=== PATIENT | male | born 1955 | race Caucasian/White ===

== ENCOUNTER 2017-12-30 11:31 | Outpatient (RCR) | payer OTHER, SELFPAY | END 2017-12-30 23:59 | disposition home or self-care (01) | LOC: CR 11:31 | PROVIDERS: PCP General Practice; Visit Provider Family Medicine | DX: Z95.3 Presence of xenogenic heart valve (principal); Z95.1 Presence of aortocoronary bypass graft; Z51.89 Encounter for other specified aftercare | CPT/HCPCS: S9472 ==

== ENCOUNTER 2018-01-01 02:37 | Outpatient (RCR) | payer OTHER, SELFPAY | END 2018-01-29 23:59 | disposition home or self-care (01) | LOC: CR 02:37 | PROVIDERS: PCP General Practice; Visit Provider General Practice | DX: Z51.89 Encounter for other specified aftercare (principal) ==

== ENCOUNTER 2018-01-10 00:54 | Outpatient (CLI) | payer OTHER, SELFPAY ==
[2018-01-10 13:20] LABS: CREATININE 1.39 mg/dL (0.70-1.30); Estimated GFR 51.78 (mL/min/1.73m2)
== END 2018-01-10 01:14 ==
PROVIDERS: PCP General Practice; Visit Provider Physician Assistant Medical
DX: Z86.79 Personal history of other diseases of the circulatory system (principal); Z13.29 Encounter for screening for other suspected endocrine disorder
CPT/HCPCS: 36415; 82565

== ENCOUNTER 2018-01-18 01:31 | Outpatient (CLI) | payer OTHER, SELFPAY ==
--- NOTE | 2018-01-18 08:54 | DI.CT_ITS ---
SYMPTOMS/DIAGNOSIS: H/O AORTIC VALVULAR STENOSIS, Z86.[address]: CT examination of the chest was performed with a bolus infusion of 100 cc's of Omnipaque 350. Images obtained through the upper abdomen show unremarkable appearance of visualized portions of the liver, spleen, pancreas and adrenals. There is an apparent left renal exophytic cyst. The gallbladder has been surgically removed. There is an aortic valve prosthesis. No evidence of aortic dissection. Ascending aorta is mildly ectatic at 42 mm. No gross pulmonary arterial thrombus identified although the pulmonary arterial circulation is not ideally opacified. No mediastinal or hilar adenopathy. No pericardial effusion. No pleural effusion or pleural based mass seen. The tracheobronchial tree appears intact. Previously noted right lower lobe consolidation noted on CT of 11/01/17 of the abdomen and pelvis has largely resolved with mild residual apparent scarring. There are changes of pulmonary emphysema and apparent pulmonary and pleural scarring in the lung apices. There is a right lower lobe intrapulmonary noncalcified nodule measuring about 6 mm in diameter. There is an intrapulmonary nodule at the left lung base and the left lower lobe measuring about 9 mm in greatest diameter and an additional poorly seen probably about 7 mm in diameter nodule in the left lung base in the lingula. Additional left basilar nodules were visible on previous CT and are not seen on today's examination. 9 mm nodule may actually be slightly smaller on today's examination. CONCLUSION: 1. Interval resolution of previously described right lower lobe consolidation. 2. Indeterminate multiple bilateral intrapulmonary nodules at the lung bases. Follow up chest CT recommended in 6 months to assess for stability. 3. Mildly ectatic ascending aorta at 42 mm in a patient with aortic valve prosthesis.
[2018-01-18] MEDS: Omnipaque 350 MG/ML 100 ML BTL IJ (09:38)
== END 2018-01-18 01:51 ==
PROVIDERS: PCP General Practice; Visit Provider Physician Assistant Medical
DX: R91.8 Other nonspecific abnormal finding of lung field (principal); I77.810 Thoracic aortic ectasia; J98.4 Other disorders of lung; Z95.2 Presence of prosthetic heart valve
CPT/HCPCS: 71260; J3490

== ENCOUNTER 2018-01-26 07:00 | Outpatient (RCR) | payer SELFPAY ==
--- NOTE | 2018-01-03 07:00 | PR3E_ITS ---
is a 63 year old male who was referred to cardiac rehabilitation Phase 2 in August 2017 s/p TAVR & CABG on 08/22/17. The patient participated and completed the Phase 2 program and has now decided to join the Phase 3 maintenance program, 2 days per week. PMH:NIDDM, Acute on chronic respiratory failure requiring supplemental oxygen, psoriasis, stable angina, BPH, HCL Cardiac Medications: Aspirin, Lopressor, Atorvastatin Risk factors:+ male, +family history, +sedentary, +stress, +remote history of smoking, +HCL, +DM II First day of exercise in Phase 3: Pt presented on 01/03/18 for his first day of exercise. Already oriented to program structure and equipment from Phase 2. Resting BP 118/67, HR 55, weight 252 lbs.Tolerated his usual regimen (treadmill , NuStep, Bike, and UBE for ten minutes each) HR w/ exercise in the 60's, KRYSTA scale ratings 12-13. Will continue to progress as tolerated.
== END 2018-01-29 23:59 | disposition home or self-care (01) ==
LOC: CR 07:00
PROVIDERS: PCP General Practice; Visit Provider Family Medicine
DX: Z51.89 Encounter for other specified aftercare (principal)

== ENCOUNTER 2018-02-28 07:00 | Outpatient (RCR) | payer SELFPAY | END 2018-03-01 23:59 | disposition home or self-care (01) | LOC: CR 07:00 | PROVIDERS: PCP General Practice; Visit Provider Family Medicine | DX: Z51.89 Encounter for other specified aftercare (principal) ==

== ENCOUNTER 2018-03-30 07:00 | Outpatient (RCR) | payer SELFPAY | END 2018-03-31 23:59 | disposition home or self-care (01) | LOC: CR 07:00 | PROVIDERS: PCP General Practice; Visit Provider Family Medicine | DX: Z51.89 Encounter for other specified aftercare (principal) ==

== ENCOUNTER 2018-04-27 15:03 | Outpatient (RCR) | payer SELFPAY | END 2018-05-01 23:59 | disposition home or self-care (01) | LOC: CR 15:03 | PROVIDERS: PCP General Practice; Visit Provider Family Medicine | DX: Z51.89 Encounter for other specified aftercare (principal) ==

== ENCOUNTER 2018-05-05 09:32 | Outpatient (REF) | payer OTHER, SELFPAY ==
[2018-05-05 13:34] LABS: HCT 45.1 % (40.0-50.0); HGB 14.8 g/dL (13.5-17.5); Mean Corp. HGB Concentration 32.8 g/dL (32.0-36.0); Mean Corpuscular Hemoglobin 29.7 pg (27.0-33.0); Mean Corpuscular Volume 90.4 fL (80-95); Mean Platelet Volume 13.1 fL (8.0-11.0); Platelet Count 156 x1000/uL (130-400); RBC 4.99 m/cumm (4.50-6.00); RBC Distribution Width 14.1 % (11.8-14.1); White Blood Cell Count 7.67 k/cumm (4.4-10.8)
[2018-05-05 13:58] LABS: Hemoglobin A1C 6.3 % (4.5-6.2)
[2018-05-05 14:00] LABS: ALT 33 U/L (12-78); AST 22 U/L (15-37); Albumin 3.6 g/dL (3.4-5.0); Alkaline Phosphatase 47 U/L (46-116); Anion Gap 8.5 mmol/L (3-11); BUN 31 mg/dL (7-18); Bilirubin, Total 0.7 mg/dL (0.2-1.0); CO2 26.5 mmol/L (21.0-32.0); CREATININE 1.56 mg/dL (0.70-1.30); Calcium 8.9 mg/dL (8.5-10.1); Chloride 108 mmol/L (98-107); Cholesterol 138 mg/dL (50-200); Estimated GFR 45.18 (mL/min/1.73m2); Glucose 129 mg/dL (70-100); HDL Cholesterol 36 mg/dL (40-60); LDL CHOLESTEROL 70 mg/dL (<100); Potassium 4.5 mmol/L (3.5-5.1); Sodium 143 mmol/L (136-145); Total Protein 7.1 g/dL (6.4-8.2); Triglyceride 144 mg/dL (30-150)
[2018-05-08 09:29] LABS: Hepatitis C Ab w Rflx HCV PCR Negative (NEGAT)
[2018-05-08 11:31] LABS: PSA, Screening 1.3 ng/ml (0-4.5)
== END 2018-05-05 09:52 ==
LOC: NCHCN 09:32
PROVIDERS: PCP General Practice; Visit Provider Family Medicine
DX: N18.9 Chronic kidney disease, unspecified (principal); E11.9 Type 2 diabetes mellitus without complications; E78.5 Hyperlipidemia, unspecified; R19.7 Diarrhea, unspecified; R80.9 Proteinuria, unspecified; Z12.5 Encounter for screening for malignant neoplasm of prostate; Z11.59 Encounter for screening for other viral diseases; Z00.00 Encounter for general adult medical examination without abnormal findings
CPT/HCPCS: 80053; 80061; 83721; 84153; 85027; 86803; 83036

== ENCOUNTER 2018-06-01 07:00 | Outpatient (RCR) | payer SELFPAY | END 2018-06-01 23:59 | disposition home or self-care (01) | LOC: CR 07:00 | PROVIDERS: PCP General Practice; Visit Provider Family Medicine | DX: Z51.89 Encounter for other specified aftercare (principal) ==

== ENCOUNTER 2018-06-27 12:55 | Outpatient (RCR) | payer SELFPAY | END 2018-06-29 23:59 | disposition home or self-care (01) | LOC: CR 12:55 | PROVIDERS: PCP General Practice; Visit Provider Family Medicine | DX: Z51.89 Encounter for other specified aftercare (principal) ==

== ENCOUNTER 2018-07-27 07:00 | Outpatient (RCR) | payer SELFPAY | END 2018-07-30 23:59 | disposition home or self-care (01) | LOC: CR 07:00 | PROVIDERS: PCP General Practice; Visit Provider Family Medicine | DX: Z51.89 Encounter for other specified aftercare (principal) ==

== ENCOUNTER 2018-08-24 07:00 | Outpatient (RCR) | payer SELFPAY | END 2018-08-29 23:59 | disposition home or self-care (01) | LOC: CR 07:00 | PROVIDERS: PCP General Practice; Visit Provider Family Medicine | DX: Z51.89 Encounter for other specified aftercare (principal) ==

== ENCOUNTER 2018-09-26 07:00 | Outpatient (RCR) | payer SELFPAY | END 2018-09-29 23:59 | disposition home or self-care (01) | LOC: CR 07:00 | PROVIDERS: PCP General Practice; Visit Provider Family Medicine | DX: Z51.89 Encounter for other specified aftercare (principal) ==

== ENCOUNTER 2018-10-26 11:20 | Outpatient (RCR) | payer SELFPAY | END 2018-10-29 23:59 | disposition home or self-care (01) | LOC: CR 11:20 | PROVIDERS: PCP General Practice; Visit Provider Family Medicine | DX: Z51.89 Encounter for other specified aftercare (principal) ==

== ENCOUNTER 2018-11-28 13:25 | Outpatient (RCR) | payer SELFPAY | END 2018-11-29 23:59 | disposition home or self-care (01) | LOC: CR 13:25 | PROVIDERS: PCP General Practice; Visit Provider Family Medicine | DX: Z51.89 Encounter for other specified aftercare (principal) ==

== ENCOUNTER 2018-12-28 07:00 | Outpatient (RCR) | payer SELFPAY | END 2018-12-30 23:59 | disposition home or self-care (01) | LOC: CR 07:00 | PROVIDERS: PCP General Practice; Visit Provider Family Medicine | DX: Z51.89 Encounter for other specified aftercare (principal) ==

== ENCOUNTER 2019-01-25 11:55 | Outpatient (RCR) | payer SELFPAY | END 2019-01-29 23:59 | disposition home or self-care (01) | LOC: CR 11:55 | PROVIDERS: PCP General Practice; Visit Provider Family Medicine | DX: Z51.89 Encounter for other specified aftercare (principal) ==

== ENCOUNTER 2019-03-01 11:59 | Outpatient (RCR) | payer SELFPAY | END 2019-03-01 23:59 | disposition home or self-care (01) | LOC: CR 11:59 | PROVIDERS: PCP General Practice; Visit Provider Family Medicine | DX: Z51.89 Encounter for other specified aftercare (principal) ==

== ENCOUNTER 2019-03-02 05:34 | Outpatient (RCR) | payer SELFPAY | END 2019-03-31 23:59 | disposition home or self-care (01) | LOC: CR 05:34 | PROVIDERS: PCP General Practice; Visit Provider Family Medicine | DX: Z51.89 Encounter for other specified aftercare (principal) ==

== ENCOUNTER 2019-04-19 07:00 | Outpatient (RCR) | payer SELFPAY | END 2019-05-01 23:59 | disposition home or self-care (01) | LOC: CR 07:00 | PROVIDERS: PCP General Practice; Visit Provider Family Medicine | DX: Z51.89 Encounter for other specified aftercare (principal) ==

== ENCOUNTER 2019-05-22 07:00 | Outpatient (RCR) | payer SELFPAY | END 2019-06-01 23:59 | disposition home or self-care (01) | LOC: CR 07:00 | PROVIDERS: PCP General Practice; Visit Provider Family Medicine | DX: Z51.89 Encounter for other specified aftercare (principal) ==

== ENCOUNTER 2019-05-24 06:02 | Day surgery (SDC) | payer OTHER, SELFPAY ==
[2019-05-24 06:17] VITALS: BP 118/71; PULSE 58; RESP 16; TEMP 36.6; O2SAT 94
[2019-05-24] MEDS: Lactated Ringers 1,000 ML 80 ML IV (06:50)
--- NOTE | 2019-05-24 07:44 | BOWEL_PTH ---
PATIENT: Edwin Byers LOC: [facility] U#:[id number] AGE/SX: 64/M ROOM: RE05/24/[address]: Kiya Springer : 1955 BED: DIS: 05/24/2019 SPEC #: [id number] RECD: 05/24/19 12:25 STATUS: JACLYN REQ #: [id number] FREEMAN: 05/24/19 07:[address]: Kiya Springer DEPT: Surgical Specimen RECD BY: Nicolasa Kapadia ENTERED: 05/24/19 12:27 SP TYPE: Bowel OTHR DR: Anjali Patel Tissues: 1 - BIOPSY BOWEL 2 - BIOPSY BOWEL Procedures: GROSS AND MICRO LEVEL 4 Comments: [id number]
--- NOTE | 2019-05-24 08:15 | W.COLOREPORT ---
Date of service: 05/24/19 Time of Service: 08:15 Colonoscopy Report Date of procedure: 05/24/19 Pre-op diagnosis general: crc screen Post-op diagnosis procedure note: other (polyp[s) Procedure: ce w/ hot polepectomy x5 Surgeon: Kiya Springer Anesthesia proc note operative: GETA Estimated blood loss (mL): 1 Pathology: other Complications: None Disposition: same day Prep: Miralax/Dulcolax Procedure Description: After informed consent was obtained the patient was taken to the procedure room and placed in a left decubitous position. Monitors were applied and a time out was done. The patients name, date of , procedure, allergies to medications and metal in their body was reviewed. The patient was then sedated. Once sedated and comfortable a rectal exam was done. External exam was normal. Internal exam revealed a normal sphincter tone and no palpable masses. The scope was then introduced and retrofelexed. no internal hemorrhoids were identified. The scope was then advanced to the cecumw/out difficulty. The TI and appendiceal orifice were identified. The prep was good. The scope was then slowly retracted over 15 minutes back into the rectum. no AVM or diverticula. Polyps were removed at x1 @ 40cm/sigmoid and x4 in rectum. All were removed w/ hot biting forcept. all Specimens were retrieved and no bleeding was noted. the scope was removed and the patient was woken up and taken back to Same day surgery in stable condition. The patient tolerated the procedure well and there were no immediate complications. Follow up: The patient should follow up in 5-10- path pd years unless they develop changes in bowel habits or other new gastrointestinal complaints.
--- NOTE | 2019-05-24 08:17 | PDOC.DSDIS_ITS ---
Discharge Plan Disposition Patient Disposition: HOME Condition: Good Discharge Details Reason For Visit: colon scope and polyp removal Attending Provider: Kiya Springer Primary Care Provider: Anjali Patel Home Meds and New Rx's Prescriptions: Continued sildenafil [Viagra] 25 mg tablet 50 mg PO .prior to sex PRNRF: 0 cholecalciferol (vitamin D3) 1,000 unit capsule 2,000 unit PO DAILY RF: 0 fluoxetine 20 mg capsule 20 mg PO DAILY RF: 0 pioglitazone [Actos] 45 mg tablet 45 mg PO DAILY RF: 0 (DME) blood-glucose meter [FreeStyle Lite Meter] 1 EACH kit 1 ea Miscellaneous DIRECTED RF: 0 glipizide [Glucotrol] 10 MG tablet 10 mg PO BID Qty: 180 RF: 3 (DME) FreeStyle Lite Strips 1 EACH strip 1 ea Miscellaneous DAILY Qty: 100 RF: 4 (DME) lancets [FreeStyle Lancets] 1 EACH misc 1 ea Miscellaneous DAILY Qty: 100 RF: 4 atorvastatin [Lipitor] 80 MG tablet 80 mg PO HS RF: 0 metoprolol tartrate 12.5 MG tablet 12.5 mg PO BID RF: 0 Discontinued polyethylene glycol 3350 17 gram/dose powder 238 g PO ONCE Qty: 238 RF: 0 bisacodyl [Dulcolax (bisacodyl)] 5 mg tablet,delayed release (DR/EC) 5 mg PO ONCE Qty: 4 RF: 0 aspirin [Ecotrin Low Strength] 81 MG tablet,delayed release (DR/EC) 81 mg PO DAILY RF: 0 Discharge Instructions Additional Instructions: Findings: polyps x5 (but small). repeat scope in 5yrs- path pd. will send a letter in 2-3 wks when to repeat scope. -no asa/nsaids's x 2 wks. than ok to resume. tylenol is ok. Follow up: see above Please call if you develop: fevers >101.5 Nausea or Vomiting Abdominal pain that is not transient DAY SURGERY UNIT POST COLONOSCOPY INSTRUCTIONS 1. Because there will be medication in your system for the next 24 hours, you may feel a little sleepy. Your coordination will be affected. Therefore: a. Do not drive or operate dangerous equipment for 24 hours. b. Do not drink alcohol beverages for 24 hours (not even beer). c. Plan to go home and rest for the day. 2. Generally there are no restrictions on your activity after a day or so has go ne by, but you may feel a bit fatigued for a few days. 3 After you arrive home you may have a light meal and return to a normal diet as you can tolerate it without feeling sick to your stomach. 4. After surgery, you may feel pain or discomfort. This should be only transient, but if it persists please contact your doctor. 5. If there are any questions regarding the findings of your procedure, please feel free to contact your doctor. 6. If you are unable to contact your doctor with a problem, contact the hospital at [phone]. 7. Continue all your regular medications unless directed otherwise. I understand the above instructions and have no questions. Signature of Patient or Responsible Adult Escort Date/Time Name of Responsible Adult Escort Signature of Nurse Date/Time Activity:: No lifting over 20 pounds or strenuous activity [id number] Diet:: Small light meals x24 hours Discharge Orders Discharge Orders: Discharge Order (Routine); Ordered 05/24/19 Ordered By: Kiya Springer DS: Diagnosis Discharge Diagnosis (1) Colorectal polyps: Status: Acute
[2019-05-24 08:41] VITALS: BP 119/76; PULSE 57; RESP 16; TEMP 36.2; O2SAT 95
== END 2019-05-24 08:55 | disposition home or self-care (01) ==
PROVIDERS: PCP Family Medicine; Visit Provider Surgery
PROC: 0DJD8ZZ Inspection of Lower Intestinal Tract, Via Natural or Artificial Opening Endoscopic (ICD-10-PCS; CPT 45378; principal; 2019-05-24 07:30)
DX: Z12.11 Encounter for screening for malignant neoplasm of colon (principal); D12.8 Benign neoplasm of rectum; K62.1 Rectal polyp; E11.9 Type 2 diabetes mellitus without complications; Z79.4 Long term (current) use of insulin; G47.33 Obstructive sleep apnea (adult) (pediatric)
CPT/HCPCS: 45384; 88305; J2250; J2704; J3010

== ENCOUNTER 2019-06-28 07:00 | Outpatient (RCR) | payer SELFPAY | END 2019-06-30 23:59 | disposition home or self-care (01) | LOC: CR 07:00 | PROVIDERS: PCP Family Medicine; Visit Provider Family Medicine | DX: Z51.89 Encounter for other specified aftercare (principal) ==

== ENCOUNTER 2019-07-10 07:00 | Outpatient (RCR) | payer SELFPAY | END 2019-07-31 23:59 | disposition home or self-care (01) | LOC: CR 07:00 | PROVIDERS: PCP Family Medicine; Visit Provider Family Medicine | DX: Z51.89 Encounter for other specified aftercare (principal) ==

== ENCOUNTER 2019-12-26 20:21 | Outpatient (REF) | payer OTHER, SELFPAY ==
[2019-12-26 21:03] LABS: Hemoglobin A1C 6.3 % (3.8-5.6)
[2019-12-26 21:22] LABS: ALT 33 U/L (16-63); AST 20 U/L (15-37); Albumin 3.5 g/dL (3.4-5.0); Alkaline Phosphatase 59 U/L (46-116); Anion Gap 8.4 mmol/L (3-11); BUN 20 mg/dL (7-18); Bilirubin, Total 0.6 mg/dL (0.2-1.0); CO2 23.6 mmol/L (21.0-32.0); CREATININE 1.33 mg/dL (0.70-1.30); Calcium 8.6 mg/dL (8.5-10.1); Calculated LDL 51 mg/dL (<100); Chloride 112 mmol/L (98-107); Cholesterol 127 mg/dL (<200); Estimated GFR 54.13 (mL/min/1.73m2); Glucose 161 mg/dL (74-106); HDL Cholesterol 30 mg/dL (40-60); Potassium 4.3 mmol/L (3.5-5.1); Sodium 144 mmol/L (136-145); Total Protein 6.8 g/dL (6.4-8.2); Triglyceride 232 mg/dL (<150)
== END 2019-12-26 20:41 ==
LOC: NCHCN 20:21
PROVIDERS: PCP Family Medicine; Visit Provider Family Medicine
DX: E11.9 Type 2 diabetes mellitus without complications (principal)
CPT/HCPCS: 80053; 80061; 83036

== ENCOUNTER 2019-12-27 13:08 | Outpatient (CLI) | payer OTHER, SELFPAY ==
--- NOTE | 2019-12-26 10:33 | DI.US_ITS ---
APPROVED REPORT EXAM: Comprehensive 2D, Doppler, and color-flow Echocardiogram Patient Location: Out-Patient [employer] Umpire: Susan Dasilva RDCS (AE) Indications: ASCVD, Bioprosthetic AVR Other Information Study Quality: Adequate Conclusion Left Ventricle : The left ventricle is normal size. The left ventricular systolic function is normal. The left ventricular ejection fraction is within the normal range. There is normal left ventricular wall thickness. There is normal LV segmental wall motion. Diastolic function is indeterminate. LVEF i s 60%. Right Ventricle : Right ventricle is not well visualized. Right ventricular systolic function could n ot be assessed. The RVSP is 27.1mmHg. Atria : The right atrium size is normal. Aortic Valve : Bioprosthetic aortic valve is present. No aortic regurgitation is present. No hemodyna mically significant valvular aortic stenosis. Great Vessels : The aortic root is normal in size. The ascending aorta is severely dilated (4.3cm). A ortic arch is normal in caliber. IVC is normal in size and collapses >50% with inspiration. There are no prior images available for comparison. Wall motion Left Ventricle The left ventricle is normal size. The left ventricular systolic function is normal. The left ventric ular ejection fraction is within the normal range. There is normal left ventricular wall thickness. T here is normal LV segmental wall motion. Diastolic function is indeterminate. There is no ventricular septal defect visualized. LVEF is 60%. Right Ventricle Right ventricle is not well visualized. Right ventricular systolic function could not be assessed. Th e RVSP is 27.1mmHg. Atria The left atrium size is normal. The right atrium size is normal. The interatrial septum is intact wit h no evidence for an atrial septal defect. Aortic Valve No hemodynamically significant valvular aortic stenosis. No aortic regurgitation is present. Bioprost hetic aortic valve is present. Mitral Valve Mild mitral annular calcification. No evidence of mitral valve stenosis. Mild mitral regurgitation. Tricuspid Valve The tricuspid valve is normal in structure. There is no tricuspid valve stenosis. Trace tricuspid reg urgitation. Pulmonic Valve Pulmonic valve is not well visualized. There is no pulmonic valvular stenosis. Trace pulmonic regurgi tation. Great Vessels The aortic root is normal in size. The ascending aorta is severely dilated (4.3cm). Aortic arch is no rmal in caliber. IVC is normal in size and collapses >50% with inspiration. Pericardium There is no pericardial effusion. 2D Dimensions IVSD d PLAX 1.13 cm M: 0.6-1.2 LV Vol A2C d MOD 122.3 mL LVPW d PLAX 1.15 cm M: 0.6 - 1.2 LV Vol A4C d MOD 166.5 mL LVID d PLAX 5.71 cm M: 4.2 - 5.8 LA vol/ BSA A2C s A-L 22.0 mL/m2 LVDs 3.70 cm M: 2.5 - 4.0 LA Area A2C s MOD 19.77 cm2 Ao Root d 3.66 cm M: 3.1 - 3.7 LV EF A4C MOD 62.2 % RA Area A4C 26.58 cm2 LV EF A2C MOD 61.0 % RA Vol/ BSA A4C s A-L 37.9 mL/m2 LV EF Biplane MOD 62.3 % Ao Asc Diam d 4.32 cm M: 2.6 - 3.4 SV 97.96 mL LV EF Teichholz 63.1 % SV Index 38.99 mL/m2 LVEF (Cornelius's) 62.31 % M: 52 - 72 LV Volume 109.90 mL M: 62 - 150 LV Volume Index 43.78 mL/m2 M: 34 - 74 LV Vol Biplane MOD 157.2 mL FS 34.60 % M-Mode TAPSE 1.83 cm (M/F) >1.7 LV Diastology MV E' medial 0.066 (>0.07 m/s) E/A Ratio 1.6 LV E/e MED 15.65 (<14) MV E Vmax 1.03 (0.4-1.3 m/s) MV E' lateral 0.113 (>0.1 m/s) MV A Vmax 0.65 (0.4-1.3 m/s) LV E/e LAT 9.10 (<14) MV E/A Ratio 1.57 MV E/E' medial 15.65 MV E/E' lateral 9.12 Aortic Valve LVOT Area 5.26 cm2 AoV Area Vmax 3.17 cm2 LVOT Vmax 1.38 m/s AoV Area/ BSA (Vmax) 1.26 cm2/m2 LVOT Mean Jovanni. 0.88 m/s TEGAN Mean Jovanni. 2.97 cm2 LVOT Peak Grad 7.7 mmHg TEGAN Mean Jovanni. Index 1.18 cm2/m2 LVOT Mean Grad 3.7 mmHg LVOT VTI 0.285 m LVOT Diam s 2.55 cm AoV Vmax 2.30 m/s Velocity Ratio 0.60 AoV Mean Jovanni. 1.56 m/s AoV Peak Grad 21.1 mmHg LVOT SV 149.97 mL AoV Mean Grad 11.7 mmHg AoV VTI 0.459 m AoV Area VTI 3.26 cm2 AoV Area/ BSA (VTI) 1.30 cm/m2 Mitral Valve MV DT 166 (160-240 msec) MR Vmax 3.89 m/s MV PHT 48 msec MR VTI 1.248 m MV Area PHT 4.58 cm2 MR Peak Grad 60.4 mmHg MV VTI 0.293 m MR Mean Grad 51.3 mmHg MV Area VTI 5.12 (4.0-6.0 cm2) MR PISA Radius 0.47 cm MR EROA 0.13 cm2 MR Aliasing Velocity 0.35 m/s MR PISA 1.41 cm2 Pulmonary Valve PV Vmax 1.06 (0.5-1.5 m/s) RVOT Peak Gr. 1.84 mmHg PV Peak Grad 4.5 mmHg RVOT Mean Gr. 0.90 mmHg PV Mean Grad 2.5 mmHg RVOT VTI 0.171 m PV VTI 0.237 m RVOT Vmax 0.68 m/s Tricuspid Valve TR Peak Grad 24.1 mmHg TR Vmax 2.46 m/s RA Pressure 3.00 mmHg RVSP (TR) 27.1 mmHg
== END 2019-12-27 13:28 ==
PROVIDERS: PCP Family Medicine; Visit Provider Internal Medicine
DX: I25.10 Atherosclerotic heart disease of native coronary artery without angina pectoris (principal); Z95.3 Presence of xenogenic heart valve; I77.810 Thoracic aortic ectasia
CPT/HCPCS: 93306

== ENCOUNTER 2020-12-23 10:00 | Outpatient (RCR) | payer SELFPAY ==
[2020-11-30 00:16] VITALS: BP 147/78; PULSE 65
[2020-12-02 09:57] VITALS: BP 135/80; PULSE 58
[2020-12-09 10:29] VITALS: BP 126/80; PULSE 61
[2020-12-16 10:21] VITALS: BP 145/73; PULSE 70
[2020-12-18 10:28] VITALS: BP 114/74; PULSE 71
[2020-12-23 10:37] VITALS: BP 131/79; PULSE 68
== END 2020-12-30 23:59 | disposition home or self-care (01) ==
LOC: CR 10:00
PROVIDERS: PCP Family Medicine; Visit Provider Family Medicine
DX: I25.10 Atherosclerotic heart disease of native coronary artery without angina pectoris (principal); Z51.89 Encounter for other specified aftercare; Z95.1 Presence of aortocoronary bypass graft; Z95.2 Presence of prosthetic heart valve

== ENCOUNTER 2021-01-27 10:00 | Outpatient (RCR) | payer SELFPAY ==
[2020-12-31 00:08] VITALS: BP 131/79; PULSE 68
[2021-01-01 10:23] VITALS: BP 132/71; PULSE 61
[2021-01-06 13:23] VITALS: BP 113/73; PULSE 59
[2021-01-13 10:03] VITALS: BP 118/70; PULSE 67
[2021-01-15 09:39] VITALS: BP 124/77; PULSE 66
[2021-01-20 09:55] VITALS: BP 157/73; PULSE 61; O2SAT 95
[2021-01-22 10:51] VITALS: BP 128/62; PULSE 58
[2021-01-27 10:09] VITALS: BP 134/82; PULSE 58
[2021-02-03 09:50] VITALS: BP 135/81; PULSE 59
== END 2021-01-29 23:59 | disposition home or self-care (01) ==
LOC: CR 10:00
PROVIDERS: PCP Family Medicine; Visit Provider Family Medicine
DX: Z51.89 Encounter for other specified aftercare (principal)

== ENCOUNTER 2021-02-26 10:00 | Outpatient (RCR) | payer SELFPAY ==
[2021-01-30 00:05] VITALS: BP 134/82; PULSE 58
[2021-02-05 10:00] VITALS: BP 153/74; PULSE 57
[2021-02-10 10:03] VITALS: BP 157/85; PULSE 59
[2021-02-12 10:43] VITALS: BP 135/80; PULSE 61
[2021-02-19 10:01] VITALS: BP 149/87; PULSE 56; O2SAT 95
[2021-02-26 09:48] VITALS: BP 133/77; PULSE 63
== END 2021-03-01 23:59 | disposition home or self-care (01) ==
LOC: CR 10:00
PROVIDERS: PCP Family Medicine; Visit Provider Family Medicine
DX: Z51.89 Encounter for other specified aftercare (principal); R69 Illness, unspecified

== ENCOUNTER 2021-03-10 10:00 | Outpatient (RCR) | payer SELFPAY ==
[2021-03-02 00:19] VITALS: BP 133/77; PULSE 63
[2021-03-03 10:01] VITALS: BP 152/81; PULSE 63; O2SAT 94
[2021-03-10 10:17] VITALS: BP 152/76; PULSE 63
== END 2021-03-31 23:59 | disposition home or self-care (01) ==
LOC: CR 10:00
PROVIDERS: PCP Family Medicine; Visit Provider Family Medicine
DX: Z51.89 Encounter for other specified aftercare (principal); R69 Illness, unspecified

== ENCOUNTER 2021-04-06 16:02 | Outpatient (REF) | payer OTHER, SELFPAY ==
[2021-04-07 13:16] LABS: COVID-19 RT-PCR UVMMC Result Negative (Negative)
== END 2021-04-06 16:03 | disposition home or self-care (01) ==
LOC: NCHCN 16:02
PROVIDERS: PCP Family Medicine; Visit Provider Family Medicine
DX: Z20.822 Contact with and (suspected) exposure to COVID-19 (principal)
CPT/HCPCS: U0003

== ENCOUNTER 2021-11-03 09:19 | Emergency (ER) | payer OTHER, SELFPAY ==
[2021-11-03 09:29] VITALS: BP 151/79; PULSE 68; RESP 16; TEMP 36.5; O2SAT 95
--- NOTE | 2021-11-03 09:45 | DI.RAD_ITS ---
Exam(s) XR RIBS RT W PA LAT CHEST EXAM: XR RIBS RT W PA LAT CHEST CLINICAL HISTORY: rib pain. injury TECHNIQUE: 2D digital imaging was performed. COMPARISON: No exams were available for comparison FINDINGS: Total 6 views: RIGHT RIBS FOUR VIEWS: There are no obvious acute right rib fractures evident. No lytic rib lesions identified. CHEST X-RAY TWO VIEWS: No lung contusion or pneumothorax. There is no pleural effusion evident. Sternotomy wires. Prosthetic aortic valve noted. IMPRESSION: 1. No obvious right rib fractures evident. Also no obvious right rib lesions. 2. No ipsilateral lung nor pleural abnormality evident. No pneumothorax. Sternotomy wires and prosthetic aortic valve noted. There is no evidence of pulmonary edema. No ple ural effusions DATA REPOSITORY: RADIATION DOSE DELIVERED:
--- NOTE | 2021-11-03 10:48 | ED.GENADUL_ITS ---
Discharge Plan Disposition Patient Disposition: HOME Condition: Stable Discharge Details Clinical Impression: Chest wall muscle strain Primary Care Provider: Anjali Patel ED Provider: Nicolasa Sánchez Home Meds and New Rx's Prescriptions: New cyclobenzaprine 5 mg tablet 5 mg PO Q8H Qty: 10 0RF Continued cholecalciferol (vitamin D3) 1,000 unit capsule 2,000 unit PO DAILY pioglitazone [Actos] 45 mg tablet 45 mg PO DAILY (DME) blood-glucose meter [FreeStyle Lite Meter] 1 EACH kit 1 ea Miscellaneous DIRECTED Rx Instructions: DX:250. glipizide [Glucotrol] 10 MG tablet 10 mg PO BID Qty: 180 Rx Instructions: d/c glucotrol xl (DME) FreeStyle Lite Strips 1 EACH strip 1 ea Miscellaneous DAILY Qty: 100 Rx Instructions: DX:250.00 (DME) lancets [FreeStyle Lancets] 1 EACH misc 1 ea Miscellaneous DAILY Qty: 100 Rx Instructions: DX:250.00 aspirin [Mata Low Dose Aspirin] 81 mg tablet,delayed release (DR/EC) 81 mg PO .QOD Label Comments: 1 tablet by mouth once a day rosuvastatin 40 mg tablet 40 mg PO DAILY Label Comments: TAKE ONE TABLET BY MOUTH AT BEDTIME Discharge Instructions Additional Instructions: Please take at least 12 deep, full breath in and exhale completely Take Tylenol as needed for discomfort I have written you a prescription for 5 mg of Flexeril, you may take 1-2 tabs as needed for discomfort Please return should he develop fever, chills, shortness of breath, or should he have new or worsening complaints Stand Alone Forms: Work Release Referrals: Anjali Patel [Primary Care Provider] - Discharge Data Discharge Date/Time-TO BE ENTERED AT DEPARTURE: 11/03/21 11:29 Medical Decision Making Patient has reproducible tenderness with a chest x-ray that does not show pneumothorax or obvious rib fracture He is instructed regarding the breathing prevent pneumonia and is discharged home in stable condition with stable vital Return precautions discussed low clinical suspicion for pulmonary embolism or cardiac etiology of symptoms based on exam findings Repeat assessment in 1 week with stated pain discussed Return precautions discussed and patient expressed understanding Medical Records Medical records reviewed: Yes I reviewed the patient's medical records. Lab Data Lab results reviewed: Yes I reviewed the patient's lab results. HPI General Date/Time Provider Initiated Documentation: 11/03/21 09:44 . HPI Narrative: this 66-year-old male with history of coronary artery disease presents with Right chest pain. Patient states that he was lifting some sod on Tuesday and turned and felt sharp pain and a crunch in his right ribs. He denies any significant traumatic injury. He states he has pain now predominantly going into a supine position and deep breathing. Denies chest pain or shortness of breath. States symptoms are exacerbated with movements, palpation, and deep breathing. Denies prior history of coagulopathy. Denies recent flights, surgeries, long track. He denies any fever or chills. He denies any history of anticoagulation. Related Data Home Medications Medication Instructions Recorded Confirmed blood-glucose meter ([employer] 09/26/12 03/21/19 Lite Meter kit) glipizide 10 mg tablet (Glucotrol) 10 mg PO BID #180 tab-caps 04/04/13 11/03/21 blood sugar diagnostic (FreeStyle #100 strips 11/22/13 03/21/19 Lite Strips) lancets 28 gauge (FreeStyle #100 ea 11/22/13 03/21/19 Lancets) cholecalciferol (vitamin D3) 25 2,000 unit PO DAILY 03/21/19 11/03/21 mcg (1,000 unit) capsule pioglitazone 45 mg tablet (Actos) 45 mg PO DAILY 03/21/19 11/03/21 aspirin 81 mg tablet,delayed 81 mg PO .QOD 11/03/21 11/03/21 release (Mata Low Dose Aspirin) cyclobenzaprine 5 mg tablet 5 mg PO Q8H #10 tabs 11/03/21 rosuvastatin 40 mg tablet 40 mg PO DAILY 11/03/21 11/03/21 Previous Rx's Medication Instructions Recorded cyclobenzaprine 5 mg tablet 5 mg PO Q8H #10 tabs 11/03/21 Allergies Allergy/AdvReac Type Severity Reaction Status Date / Time seafood Allergy Uncoded 11/03/21 09:34 General Stated Complaint: Chest/Rib CARLTON: 4 Review of Systems All systems reviewed & are unremarkable except as noted in HPI and below PFSH All Active Problems (Updated 11/03/21 @ 10:59 by SARI Stahl) Chest wall muscle strain (Acute) Colorectal polyps (Acute) Medical History (Updated 11/03/21 @ 10:59 by SARI Stahl) Allergic rhinitis Arthritis Colonoscopy planned Depression Former smoker (~2005) Heart murmur, systolic Hyperlipidemia Lung nodule Non-insulin dependent type 2 diabetes mellitus Psoriasis Sleep apnea does not use a device Surgical History (Updated 06/01/19 @ 13:07 by Adri Waldrop RN) Cholecystectomy Fracture, Closed Treatment ankle H/O aortic valve replacement (~07/2017) History of colonoscopy (~05/2019) S/P triple vessel bypass (~07/2017) f/u WITH CARDIOLOGY AT [facility] [place] DR. BARFIELD LAST SEEN 10/2018 Tonsillectomy Social History (Updated 05/10/19 @ 12:06 by SARI Chau) Smoking/Tobacco Use Status: Former Tobacco Use Quit Date: 05/02/05 Smoking risk assessment performed?: Yes Alcohol Intake: current Alcohol Intake frequency: a few times a month Drug use: Occasionally Substance use type: marijuana Do you feel safe at home: Yes Do you feel safe in your relationship?: Yes Exam Const General: cooperative, comfortable and no acute distress HENMT Head: normal to inspection Eyes Sclera: sclerae normal Chest Chest/axillae images: 1. tenderness, no rashes or crepitus Resp Effort & Inspection: normal respiratory effort Cardio Rate: regular rate Rhythm: regular rhythm Course Vital Signs Vital signs: Vital Signs Temperature 36.5 C 11/03/21 09:29 Pulse 68 11/03/21 09:29 Respiratory Rate 16 11/03/21 09:29 Blood Pressure 151/79 H 11/03/21 09:29 Pulse Oximetry 95 11/03/21 09:29 Temperature 36.5 C 11/03/21 09:29 Temperature Source Oral 11/03/21 09:29 Pulse 68 11/03/21 09:29 Respiratory Rate 16 11/03/21 09:29 Respiratory Effort 11/03/21 09:29 Blood Pressure 151/79 H 11/03/21 09:29 Blood Pressure Position Sitting 11/03/21 09:29 Pulse Oximetry 95 11/03/21 09:29 Oxygen Delivery Method Room Air 11/03/21 09:29 Oxygen Flow Rate 0 11/03/21 09:29 Pain Level 1 11/03/21 09:29
== END 2021-11-03 11:29 | disposition home or self-care (01) ==
PROVIDERS: Emergency Provider Physician Assistant; PCP Family Medicine
DX: S29.011A Strain of muscle and tendon of front wall of thorax, initial encounter (principal); E11.9 Type 2 diabetes mellitus without complications; Z87.891 Personal history of nicotine dependence; X50.0XXA Overexertion from strenuous movement or load, initial encounter
CPT/HCPCS: 99284; 71046; 71100

== ENCOUNTER 2022-05-31 11:30 | Outpatient (REF) | payer OTHER, SELFPAY ==
[2022-05-31 15:52] LABS: ALT 28 U/L (16-63); AST 24 U/L (15-37); Alkaline Phosphatase 49 U/L (46-116); Anion Gap 9.1 mmol/L (3-11); BUN 17 mg/dL (7-18); Bilirubin, Total 0.7 mg/dL (0.2-1.0); CO2 27.9 mmol/L (21.0-32.0); CREATININE 1.3 mg/dL (0.70-1.30); Calcium 9.2 mg/dL (8.5-10.1); Calculated LDL 47 mg/dL (<100); Chloride 107 mmol/L (98-107); Cholesterol 111 mg/dL (<200); Estimated GFR 60.21 (mL/min/1.73m2); Glucose 134 mg/dL (74-106); HDL Cholesterol 47 mg/dL (40-60); Potassium 4.6 mmol/L (3.5-5.1); Sodium 144 mmol/L (136-145); Total Protein 7.3 g/dL (6.4-8.2); Triglyceride 87 mg/dL (<150)
[2022-06-01 10:14] LABS: PSA, Screening 2.8 ng/mL (<=4.5)
== END 2022-05-31 11:31 | disposition home or self-care (01) ==
LOC: NCHCN 11:30
PROVIDERS: PCP Family Medicine; Visit Provider Family Medicine
DX: Z00.00 Encounter for general adult medical examination without abnormal findings (principal); E11.9 Type 2 diabetes mellitus without complications; E78.5 Hyperlipidemia, unspecified; N52.9 Male erectile dysfunction, unspecified; N18.9 Chronic kidney disease, unspecified; Z12.5 Encounter for screening for malignant neoplasm of prostate
CPT/HCPCS: 80053; 80061; 84153

== ENCOUNTER 2023-01-28 09:28 | Emergency (ER) | payer BC, SELFPAY ==
--- NOTE | 2023-01-28 09:30 | DI.RAD_ITS ---
Exam(s) XR LUMBAR SPINE COMPLETE EXAM: XR LUMBAR SPINE COMPLETE CLINICAL HISTORY: Lower Back Pain. TECHNIQUE: 2D digital imaging was performed of the lumbar spine. Five images were obtained. AP, la teral, right oblique, left oblique and L5-S1 spot views were obtained. COMPARISON: CT ABD PELVIS WO CONTRAST from 11/01/2017 FINDINGS: BONES: No fracture or destructive lesion. There are endplate osteophytes seen particularly from L2-3 through L4-L5. Degenerative changes of the facets are seen at L5-S1. DISKS: Mild disc space narrowing is seen at L2-L3. ALIGNMENT: Lumbar spinal alignment is within normal limits. No spondylolysis or spondylolisthesis. SOFT TISSUE: Atherosclerosis is present. There are surgical clips in the right upper quadrant of the abdomen. IMPRESSION: Degenerative changes seen in the lumbar spine. DATA REPOSITORY: RADIATION DOSE DELIVERED:
[2023-01-28 09:33] VITALS: BP 149/65; PULSE 63; RESP 18; TEMP 36.5; O2SAT 95
--- NOTE | 2023-01-28 09:47 | W.ED.GENAD ---
Discharge Plan Disposition Patient Disposition: Home Discharge Details Clinical Impression: Sciatica of right side Primary Care Provider: Anjali Patel ED Provider: Arlette Child Home Meds and New Rx's Prescriptions: New prednisone 20 mg tablet 60 mg PO DAILY 5 Days Qty: 15 0RF diazepam 2 mg tablet 2 mg PO BID PRN (Reason: muscle spasm) Qty: 5 0RF Rx Instructions: Take one tablet twice daily as needed for muscle spasm No Action cholecalciferol (vitamin D3) 1,000 unit capsule 2,000 unit PO DAILY pioglitazone [Actos] 45 mg tablet 45 mg PO DAILY (DME) blood-glucose meter [FreeStyle Lite Meter] 1 EACH kit 1 ea Miscellaneous DIRECTED Rx Instructions: DX:250. glipizide [Glucotrol] 10 MG tablet 10 mg PO BID Qty: 180 Rx Instructions: d/c glucotrol xl (DME) FreeStyle Lite Strips 1 EACH strip 1 ea Miscellaneous DAILY Qty: 100 Rx Instructions: DX:250.00 (DME) lancets [FreeStyle Lancets] 1 EACH misc 1 ea Miscellaneous DAILY Qty: 100 Rx Instructions: DX:250.00 aspirin [Mata Low Dose Aspirin] 81 mg tablet,delayed release (DR/EC) 81 mg PO .QOD Patient Comments: 1 tablet by mouth once a day rosuvastatin 40 mg tablet 40 mg PO DAILY Patient Comments: TAKE ONE TABLET BY MOUTH AT BEDTIME cyclobenzaprine 5 mg tablet 5 mg PO Q8H Qty: 10 0RF Discharge Instructions Instructions: Sciatica (ED), Lower Back Exercises (ED) Additional Instructions: Please take the medications as prescribed. Alternate ice and heat. Follow up with primary care provider in 3-5 days. Return to ED sooner if any worsening or concerns. Increase oral fluids. Please take Tylenol or Ibuprofen with food every 4-6 hours as needed for pain and swelling. Stand Alone Forms: Work Release Referrals: Anjali Patel [Primary Care Provider] - 3 days Medical Decision Making 67 year old male presents to the ED with cc of right lower back pain which radiates into his right buttock and down his right thigh. This has worsened over the last couple days. He does work at [employer] and does heavy lifting pushing and pulling. He denies any falls or significant injuries. Denies any loss of bowel or bladder control no saddle anesthesia. He does state that he has noticed that his urine has been a little more darker than normal. Denies any nausea vomiting diarrhea or any other associated symptoms. He is walking with a limp. He did take some Aleve yesterday nothing this morning. He does have a past medical history of noninsulin-dependent diabetes type 2, psoriasis, sleep apnea hyperlipidemia depression he is a former smoker. Other history also includes a triple vessel bypass and aortic valve replacement. X-ray L-spine ordered, urinalysis prednisone 60 mg. Patient is driving and declined any muscle relaxers at this time. Urinalysis shows no nitrates no leukocytes no signs of infection. Specific gravity greater than 1.030 urobilinogen. XR results noted below, degenerative changes noted. Will give patient Valium prescription and prednisone and DC home with follow up instructions. This text was generated using [employer] system, please disregard any oddities of phrase or misspellings. Imaging Data Radiologic Study: Imaging: X-Ray Radiologist's impression: EXAM: XR LUMBAR SPINE COMPLETE CLINICAL HISTORY: Lower Back Pain. TECHNIQUE: 2D digital imaging was performed of the lumbar spine. Five images were obtained. AP, lateral, right oblique, left oblique and L5-S1 spot views were obtained. COMPARISON: CT ABD PELVIS WO CONTRAST from 11/01/2017 FINDINGS: BONES: No fracture or destructive lesion. There are endplate osteophytes seen particularly from L2-3 through L4-L5. Degenerative changes of the facets are seen at L5-S1. DISKS: Mild disc space narrowing is seen at L2-L3. ALIGNMENT: Lumbar spinal alignment is within normal limits. No spondylolysis or spondylolisthesis. SOFT TISSUE: Atherosclerosis is present. There are surgical clips in the right upper quadrant of the abdomen. IMPRESSION: Degenerative changes seen in the lumbar spine. HPI General Mode of arrival: ambulatory. Date/Time Provider Initiated Documentation: 01/28/23 09:37. Limitations to Documentation: no limitations. Information obtained by: patient, RN notes reviewed and old records reviewed. HPI Narrative: 67 year old male presents to the ED with cc of right lower back pain which radiates into his right buttock and down his right thigh. This has worsened over the last couple days. He does work at [employer] and does heavy lifting pushing and pulling. He denies any falls or significant injuries. Denies any loss of bowel or bladder control no saddle anesthesia. He does state that he has noticed that his urine has been a little more darker than normal. Denies any nausea vomiting diarrhea or any other associated symptoms. He is walking with a limp. He did take some Aleve yesterday nothing this morning. He does have a past medical history of noninsulin-dependent diabetes type 2, psoriasis, sleep apnea hyperlipidemia depression he is a former smoker. Other history also includes a triple vessel bypass and aortic valve replacement. Related Data Home Medications Medication Instructions Recorded Confirmed blood-glucose meter (FreeStyle 09/26/12 03/21/19 Lite Meter kit) glipizide 10 mg tablet (Glucotrol) 10 mg PO BID #180 tab-caps 04/04/13 11/03/21 blood sugar diagnostic (FreeStyle #100 strips 11/22/13 03/21/19 Lite Strips) lancets 28 gauge (FreeStyle #100 ea 11/22/13 03/21/19 Lancets) cholecalciferol (vitamin D3) 25 2,000 unit PO DAILY 03/21/19 11/03/21 mcg (1,000 unit) capsule pioglitazone 45 mg tablet (Actos) 45 mg PO DAILY 03/21/19 11/03/21 aspirin 81 mg tablet,delayed 81 mg PO .QOD 11/03/21 11/03/21 release (Mata Low Dose Aspirin) cyclobenzaprine 5 mg tablet 5 mg PO Q8H #10 tabs 11/03/21 rosuvastatin 40 mg tablet 40 mg PO DAILY 11/03/21 11/03/21 diazepam 2 mg tablet 2 mg PO BID PRN muscle spasm #5 01/28/23 tabs prednisone 20 mg tablet 60 mg PO DAILY 5 days #15 tabs 01/28/23 Previous Rx's Medication Instructions Recorded cyclobenzaprine 5 mg tablet 5 mg PO Q8H #10 tabs 11/03/21 diazepam 2 mg tablet 2 mg PO BID PRN muscle spasm #5 01/28/23 tabs prednisone 20 mg tablet 60 mg PO DAILY 5 days #15 tabs 01/28/23 Allergies Allergy/AdvReac Type Severity Reaction Status Date / Time seafood Allergy Uncoded 11/03/21 09:34 General Stated Complaint: Nk/Back Pain CARLTON: 3 Review of Systems All systems reviewed & are unremarkable except as noted in HPI and below ENT Ears, Nose, Mouth, and Throat: Denies neck pain Musculoskeletal Musculoskeletal: Reports abnormal gait, Reports back pain, Denies muscle weakness, Denies neck pain, Denies numbness, Reports radiating pain into limb, Reports stiffness and Denies tingling Neurologic Neurologic: Reports abnormal gait, Denies lack of coordination, Denies numbness, Denies sensory deficit and Denies tingling PFSH All Active Problems (Updated 01/28/23 @ 11:01 by Arlette Child NP) Sciatica of right side (Acute) Colorectal polyps (Acute) Medical History Allergic rhinitis Arthritis Colonoscopy planned Depression Former smoker (~2005) Heart murmur, systolic Hyperlipidemia Lung nodule Non-insulin dependent type 2 diabetes mellitus Psoriasis Sleep apnea does not use a device Surgical History Cholecystectomy Fracture, Closed Treatment ankle H/O aortic valve replacement (~07/2017) History of colonoscopy (~05/2019) S/P triple vessel bypass (~07/2017) f/u WITH CARDIOLOGY AT [facility] [place] DR. BARFIELD LAST SEEN 10/2018 Tonsillectomy Social History Smoking/Tobacco Use Status: Former Tobacco Use Quit Date: 05/02/05 Smoking risk assessment performed?: Yes Alcohol Intake: current Alcohol Intake frequency: a few times a month Drug use: Occasionally Substance use type: marijuana Do you feel safe at home: Yes Do you feel safe in your relationship?: Yes Exam Narrative Exam Narrative: Constitutional: Alert and oriented x3. Appears stated age. Normal body habitus. Head: Normocephalic, no trauma. Eyes: Pupils PERRL, Red reflex noted, EOM's intact. Eyelids symmetrical without lesions, discharge, or swelling. ENT: Bilateral TM's WNL, External ear normal to inspection, no mastoid TTP, swelling, or erythema, Nasal turbinates WNL, no nasal discharge. Normal dentition, Posterior pharynx WNL, no exudate. Chest: RRR, Normal S1, S2, distal pulses intact. Resp: Lungs clear to auscultation bilaterally, no wheezes, rales, or rhonchi. Abdomen: Soft, non-distended, Normoactive bowel sounds all 4 quads. Musculoskeletal: Slightly stiff and limping gait 5/5 strength to all four extremities. No midline TL spine tenderness no crepitus no step-off. No CVA tenderness bilaterally Skin: No suspicious rashes or lesions. Capillary refill less than 2 sec. Neurologic: Cranial nerves II-XII intact. Alert and oriented x 3. Motor: No deficits noted. Sensory: Intact bilaterally all 4 extremities. Reflexes: DTR's intact bilaterally.. Hematologic/Lymphatic: No ecchymosis, no lymphadenopathy. Course Vital Signs Vital signs: Vital Signs Temperature 36.5 C 01/28/23 09:33 Pulse 63 01/28/23 09:33 Respiratory Rate 18 01/28/23 09:33 Blood Pressure 149/65 H 01/28/23 09:33 Pulse Oximetry 95 01/28/23 09:33 Temperature 36.5 C 01/28/23 09:33 Temperature Source Skin 01/28/23 09:33 Pulse 63 01/28/23 09:33 Respiratory Rate 18 01/28/23 09:33 Blood Pressure 149/65 H 01/28/23 09:33 Blood Pressure Position Sitting 01/28/23 09:33 Pulse Oximetry 95 01/28/23 09:33 Oxygen Delivery Method Room Air 01/28/23 09:33 Oxygen Flow Rate 0 01/28/23 09:33 Pain Level 3 01/28/23 09:33
[2023-01-28] MEDS: predniSONE 20 MG TAB 60 MG PO (10:03)
[2023-01-28 10:16] LABS: Bilirubin Negative (Negative); Blood Negative (Negative); Clarity Clear (Clear); Glucose Negative (Negative); Ketones Negative (Negative); Leukocyte Esterase Negative (Negative); Nitrite Negative (Negative); Specific Gravity >= 1.030 (1.005-1.025); pH 5.5 (5-8)
[2023-01-28 11:15] VITALS: BP 154/74; PULSE 58; RESP 16; O2SAT 98
== END 2023-01-28 11:22 | disposition home or self-care (01) ==
PROVIDERS: Emergency Provider Registered Nurse Emergency; PCP Family Medicine
DX: M54.31 Sciatica, right side (principal)
CPT/HCPCS: 99283; 72110; 81003; 99284; J7512

== ENCOUNTER 2023-03-30 17:34 | Emergency (ER) | payer BC, SELFPAY ==
[2023-03-30 17:41] VITALS: BP 150/77; PULSE 73; RESP 16; TEMP 36.8; O2SAT 98
--- NOTE | 2023-03-30 18:39 | ED.GENADUL_ITS ---
Discharge Plan Disposition Patient Disposition: Home Condition: Good Discharge Details Clinical Impression: Back pain Primary Care Provider: Anjali Patel ED Provider: Padmini Dickens Home Meds and New Rx's Prescriptions: New diazepam [Valium] 2 mg tablet 2 mg PO BID PRNQty: 10 0RF No Action cholecalciferol (vitamin D3) 1,000 unit capsule 2,000 unit PO DAILY pioglitazone [Actos] 45 mg tablet 45 mg PO DAILY (DME) blood-glucose meter [FreeStyle Lite Meter] 1 EACH kit 1 ea Miscellaneous DIRECTED Rx Instructions: DX:250. glipizide [Glucotrol] 10 MG tablet 10 mg PO BID Qty: 180 Rx Instructions: d/c glucotrol xl (DME) FreeStyle Lite Strips 1 EACH strip 1 ea Miscellaneous DAILY Qty: 100 Rx Instructions: DX:250.00 (DME) lancets [FreeStyle Lancets] 1 EACH misc 1 ea Miscellaneous DAILY Qty: 100 Rx Instructions: DX:250.00 aspirin [Mata Low Dose Aspirin] 81 mg tablet,delayed release (DR/EC) 81 mg PO .QOD Patient Comments: 1 tablet by mouth once a day rosuvastatin 40 mg tablet 40 mg PO DAILY Patient Comments: TAKE ONE TABLET BY MOUTH AT BEDTIME cyclobenzaprine 5 mg tablet 5 mg PO Q8H Qty: 10 0RF diazepam 2 mg tablet 2 mg PO BID PRN (Reason: muscle spasm) Qty: 5 0RF Rx Instructions: Take one tablet twice daily as needed for muscle spasm Discharge Instructions Instructions: Back Pain (ED) Additional Instructions: Tylenol and ibuprofen over the counter for pain; follow the directions on the bottle. Valium up to every 8 hours for muscle spasm Call your primary care doctor today to schedule an appointment within one week to follow up on your visit today. Return to the emergency department for new or worsening symptoms including fever, inability to walk, numbness, weakness, or if you have any other concerns. Stand Alone Forms: Work Release Referrals: Anjali Patel [Primary Care Provider] - Discharge Data Discharge Date/Time-TO BE ENTERED AT DEPARTURE: 03/30/23 19:04 Medical Decision Making 67yo M with hx of DM, HLD, prior episodes of sciatica, presenting with left low lumbar back pain consistent with prior sciatica. Vital signs and physical exam reassuring, no neurologic deficits. No neurologic symptoms or red flags for back pain. Ambulates easily with steady gait. No trauma or injury. Not concerning for fracture, spinal cord injury, cauda equina, epidural abscess, etc. Would not get labs or imaging; will medicate with tylenol, toradol, send short course of valium prn as has helped patient in the past. No valium here as he has to drive home. Discharged home; discharge instructions including return precautions were reviewed with patient who verbalized understanding. All quest ions were answered and they are in full agreement with the plan. HPI General Mode of arrival: ambulatory . Date/Time Provider Initiated Documentation: 03/30/23 18:11 . Limitations to Documentation: no limitations . Information obtained by: patient . HPI Narrative: 67yo M with hx of DM, HLD, prior episodes of sciatica, presenting with left low lumbar back pain. First noted symptoms on Tuesday, a few twinges. Has been worsening since then, today much more persistent. Exacerbated by lifting boxes at work. Pain is dull, low left sided, radiates slightly to his left hip. Feels like when his right sided sciatica first started. No recent falls, trauma, injury, or unusual exertion. No numbness, tingling, or weakness. No bowel or bladder issues. No spinal instrumentation or hx of IV durg use. He is otherwise in his usual state of health with no fevers, chills, rash, nausea, vomiting, chest pain, shortness of breathing, abdominal pain, or other concerns. Related Data Home Medications Medication Instructions Recorded Confirmed blood-glucose meter (FreeStyle 09/26/12 03/21/19 Lite Meter kit) glipizide 10 mg tablet (Glucotrol) 10 mg PO BID #180 tab-caps 04/04/13 11/03/21 blood sugar diagnostic (FreeStyle #100 strips 11/22/13 03/21/19 Lite Strips) lancets 28 gauge (FreeStyle #100 ea 11/22/13 03/21/19 Lancets) cholecalciferol (vitamin D3) 25 2,000 unit PO DAILY 03/21/19 11/03/21 mcg (1,000 unit) capsule pioglitazone 45 mg tablet (Actos) 45 mg PO DAILY 03/21/19 11/03/21 aspirin 81 mg tablet,delayed 81 mg PO .QOD 11/03/21 11/03/21 release (Mata Low Dose Aspirin) cyclobenzaprine 5 mg tablet 5 mg PO Q8H #10 tabs 11/03/21 rosuvastatin 40 mg tablet 40 mg PO DAILY 11/03/21 11/03/21 diazepam 2 mg tablet 2 mg PO BID PRN muscle spasm #5 01/28/23 tabs diazepam 2 mg tablet (Valium) 2 mg PO BID PRN #10 tabs 03/30/23 Previous Rx's Medication Instructions Recorded cyclobenzaprine 5 mg tablet 5 mg PO Q8H #10 tabs 11/03/21 diazepam 2 mg tablet 2 mg PO BID PRN muscle spasm #5 01/28/23 tabs diazepam 2 mg tablet (Valium) 2 mg PO BID PRN #10 tabs 03/30/23 Allergies Allergy/AdvReac Type Severity Reaction Status Date / Time seafood Allergy Uncoded 11/03/21 09:34 General Stated Complaint: Nk/Back Pain CARLTON: 4 Review of Systems Narrative: see HPI PFSH All Active Problems (Updated 03/30/23 @ 18:47 by Padmini Dickens MD) Back pain (Acute) Colorectal polyps (Acute) Medical History Allergic rhinitis Arthritis Colonoscopy planned Depression Former smoker (~2005) Heart murmur, systolic Hyperlipidemia Lung nodule Non-insulin dependent type 2 diabetes mellitus Psoriasis Sleep apnea does not use a device Surgical History Cholecystectomy Fracture, Closed Treatment ankle H/O aortic valve replacement (~07/2017) History of colonoscopy (~05/2019) S/P triple vessel bypass (~07/2017) f/u WITH CARDIOLOGY AT [facility] [place] LAST SEEN 10/2018 Tonsillectomy Social History Smoking/Tobacco Use Status: Former Tobacco Use Quit Date: 05/02/05 Smoking risk assessment performed?: Yes Alcohol Intake: current Alcohol Intake frequency: a few times a month Drug use: Occasionally Substance use type: marijuana Housing: house Do you feel safe at home: Yes Do you feel safe in your relationship?: Yes Exam Narrative Exam Narrative: General: Alert, well appearing, well nourished, in no acute distress. Head: Normocephalic, atraumatic Neck: Trachea midline, Neck supple. Cardiac: RRR, no murmurs appreciated Resp: No respiratory distress. CTAB. Abd: Soft, non-distended, nontender Back: No midline tenderness. Extremities: No deformities. No peripheral edema. Neuro: GCS 15. PERRL. EOMI. Fluent speech, no dysarthria. Motor- 5/5 strength symmetric bilateral upper and lower extremities incl Sensation- Intact to light touch and symmetric multiple dermatomes including upper and lower extremities Gait/station: Normal stance. No truncal ataxia. Steady gait with equal normal steps Course Vital Signs Vital signs: Vital Signs Temperature 36.8 C 03/30/23 17:41 Pulse 73 03/30/23 17:41 Respiratory Rate 16 03/30/23 17:41 Blood Pressure 150/77 H 03/30/23 17:41 Pulse Oximetry 98 03/30/23 17:41 Temperature 36.8 C 03/30/23 17:41 Temperature Source Oral 03/30/23 17:41 Pulse 73 03/30/23 17:41 Respiratory Rate 16 03/30/23 17:41 Blood Pressure 150/77 H 03/30/23 17:41 Pulse Oximetry 98 03/30/23 17:41
[2023-03-30] MEDS: Acetaminophen 500 MG TAB 1000 MG PO (18:56)
[2023-03-30] MEDS: Ketorolac 15 MG/ML VIAL IM (18:56)
[2023-03-30 19:04] VITALS: BP 165/87; PULSE 62; RESP 19; TEMP 36.7; O2SAT 99
== END 2023-03-30 19:04 | disposition home or self-care (01) ==
PROVIDERS: Emergency Provider Student in an Organized Health Care Education/Training Program; PCP Family Medicine
DX: M54.50 Low back pain, unspecified (principal); E11.9 Type 2 diabetes mellitus without complications; E78.5 Hyperlipidemia, unspecified; Z79.82 Long term (current) use of aspirin; Z79.84 Long term (current) use of oral hypoglycemic drugs; Z79.899 Other long term (current) drug therapy; Z91.013 Allergy to seafood
CPT/HCPCS: 96372; 99284; 99283; J1885

== ENCOUNTER 2023-06-06 10:26 | Outpatient (REF) | payer BC, SELFPAY ==
[2023-06-06 16:05] LABS: ALT 29 U/L (16-63); AST 22 U/L (15-37); Alkaline Phosphatase 61 U/L (46-116); Anion Gap 9.4 mmol/L (3-11); BUN 21 mg/dL (7-18); CO2 25.6 mmol/L (21.0-32.0); CREATININE 1.4 mg/dL (0.70-1.30); Calcium 9.4 mg/dL (8.5-10.1); Chloride 106 mmol/L (98-107); Estimated GFR 54.75 (mL/min/1.73m2); Glucose 169 mg/dL (74-106); Potassium 4.7 mmol/L (3.5-5.1); Sodium 141 mmol/L (136-145); Total Protein 7.4 g/dL (6.4-8.2)
[2023-06-06 16:39] LABS: Calculated LDL 124 mg/dL (<100); Cholesterol 200 mg/dL (<200); HDL Cholesterol 52 mg/dL (40-60); Triglyceride 121 mg/dL (<150)
[2023-06-06 17:25] LABS: Hemoglobin A1C 5.6 % (<5.7)
== END 2023-06-06 10:27 | disposition home or self-care (01) ==
LOC: NCHCN 10:26
PROVIDERS: PCP Family Medicine; Visit Provider Family Medicine
DX: E78.5 Hyperlipidemia, unspecified (principal); E11.9 Type 2 diabetes mellitus without complications; N18.9 Chronic kidney disease, unspecified
CPT/HCPCS: 80053; 80061; 83036

== ENCOUNTER 2024-07-16 13:22 | Outpatient (REF) | payer MEDICARE, SELFPAY ==
[2024-07-16 15:55] LABS: Microalb ug/mg Crea 33.1 ug/mg Cr
== END 2024-07-16 13:23 | disposition home or self-care (01) ==
LOC: NCHCN 13:22
PROVIDERS: PCP Family Medicine; Visit Provider Family Medicine
DX: E11.9 Type 2 diabetes mellitus without complications (principal)
CPT/HCPCS: 82043; 82570

== ENCOUNTER 2024-11-13 14:04 | Emergency (ER) | payer MEDICARE, SELFPAY ==
[2024-11-13 14:11] VITALS: BP 152/77; PULSE 54; RESP 16; TEMP 36.3; O2SAT 98
--- NOTE | 2024-11-13 14:15 | RT.EKG_ITS ---
APPROVED REPORT Exam: Resting ECG Reason for Exam: epigastric pain. Hx. Patient Location: E HR:50 bpm ECG Measurements Heart Rate 50 AXIS OK 148 P 64 QRSd 106 QRS 61 QT 447 T 76 QTc 409 Conclusion Sinus bradycardia...rate< 60
--- NOTE | 2024-11-13 14:30 | DI.CT_ITS ---
Exam(s) CT ABDOMEN PELVIS W EXAM: CT ABDOMEN PELVIS W CLINICAL HISTORY: n/v, lower abdominal pain. TECHNIQUE: Imaging Protocol: Axial computed tomography images with coronal and sagittal reformatted images were created and reviewed CONTRAST MATERIAL: Intravenous: Omnipaque-350 100cc Oral: None COMPARISON: CT ABD PELVIS WO CONTRAST from 11/01/2017 FINDINGS: VISUALIZED LUNG BASES: No nodules nor pleural effusions evident. The large area of infiltrate-pneumonia in the right lower lobe which was evident on CT scan of October 2017 has resolved. ABDOMEN: GI: There are abnormally dilated small bowel loops anterior and posterior to the transverse colon measuring up to 3.5 cm diameter (normal is less than 2.5 cm) and consistent with element of small bowel obstruction. Distal most small bowel loops are relatively collapsed. Large bowel exhibits normal diameter. No evidence of appendicitis. LIVER: There are no focal hepatic lesions evident. No dilated intrahepatic ducts. GALLBLADDER/BILIARY: The gallbladder is again noted be surgically absent. There are no dilated intrahepatic ducts and the CBD is not dilated. PANCREAS: No evidence of pancreatic mass nor dilatation of the pancreatic duct. SPLEEN: Spleen is not enlarged. No obvious intrasplenic lesions. Splenic and portal veins are patent. ADRENALS: Small thickening-small nodule in the medial limb of the right adrenal gland is unchanged from 2018 and probably a small adenoma. No other adrenal findings. KIDNEYS:There cysts in left kidney which have increased in size. The largest is posterior and measures 5 cm. This cyst measured 2 cm in 2018. These benign cysts do not require further workup. No other for focal findings in the left kidney. In the opposite-right kidney there is a 1.7 cm cyst located in the medial cortex, previously present. In addition to other tiny benign cortical cysts there is also an anterior cortex lesion measuring 1.5 by 1 cm which is too dense to be a simple cyst. It is probably hemorrhagic cysts or more concerning nodule. There are no radiopaque calculi in the kidneys and no hydronephrosis nor hydroureter. Pelvic ureters are not dilated and the urinary bladder is not distended. However, there is significant enlargement and lobulation of the prostate gland and there is an enhancing mass in the central-left side of the prostate gland which was not evident in 2018 and suspicious for possible prostate malignancy. This measures approximately 4 by 3.8 cm. This indents the bladder base. ABDOMINAL AORTA: The abdominal aorta is heavily calcified as are the iliac arteries. There are no aneurysms of these vessels. 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 It does not appear occlusive LYMPH NODES:There is no retroperitoneal nor paraaortic adenopathy. ABDOMINAL WALL: There is a small fat only containing anterior abdominal wall umbilical hernia. This does not contain bowel loops in this not appear to be the transition point of the bowel obstruction. PELVIS: GI: Appendix difficult to locate/identify. There is no obvious acute appendicitisno evidence of sigmoid diverticulitis.There is a small-moderate amount of free fluid in the dependent aspect of the pelvis LYMPH NODES: There is no intrapelvic nor inguinal adenopathy. REPRODUCTIVE: Enlarged lobulated prostate with enhancing mass suspicious for prostate malignancy. This indents bladder base. URINARY BLADDER: As above. OSSEOUS: Abnormal, as described above IMPRESSION: 1. There is a mid-distal small bowel obstruction pattern. Is difficult to identify actual transition point. The dilated small bowel loops are up to 3.5 cm diameter. There is small amount of free fluid in the dependent aspect of pelvis which may be related to the obstruction. There is no free air evident 2. Previous cholecystectomy and possibly previous appendectomy. 3. Heavily calcified abdominal aorta and iliac arteries. 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 4. Prostate is enlarged and lobulated and contains an enhancing mass which is suspicious for neoplasm. This enhancing mass significantly involves the urinary bladder. Urology consultation recommended Findings called by myself to ER physician 11/13/2024 at 4:40 p.m. RADIATION DOSE DELIVERED: 613.18mGy.cm Total DLP DATA REPOSITORY: All CT scans at this facility are submitted to the National Radiology Data Registry (NRDR) Dose Index Registry (DIR) with the [employer] (ACR). RADIATION OPTIMIZATION: All CT scans at this facility use at least one of these dose optimization techniques: automated exposure control; mA and/or kV adjustment per patient size (includes targeted exams where dose is matched to clinical indication); or iterative reconstruction.
--- NOTE | 2024-11-13 14:36 | W.ED.GENAD ---
Discharge Plan Disposition Patient Disposition: Home Condition: Stable Discharge Details Clinical Impression: Abdominal pain, Prostate mass Primary Care Provider: Anjali Patel ED Provider: Herbert Rebolledo Home Meds and New Rx's Prescriptions: New ondansetron 4 mg tablet,disintegrating 4 mg PO Q8H PRN (Reason: nausea and vomiting) Qty: 30 0RF Continued cholecalciferol (vitamin D3) 1,000 unit capsule 2,000 unit PO DAILY (DME) blood-glucose meter [FreeStyle Lite Meter] 1 EACH kit 1 ea Miscellaneous DIRECTED Rx Instructions: DX:250. (DME) FreeStyle Lite Strips 1 EACH strip 1 ea Miscellaneous DAILY Qty: 100 Rx Instructions: DX:250.00 (DME) lancets [FreeStyle Lancets] 1 EACH misc 1 ea Miscellaneous DAILY Qty: 100 Rx Instructions: DX:250.00 tamsulosin 0.4 mg capsule 0.4 mg PO DAILY rosuvastatin 40 mg tablet 40 mg PO DAILY Patient Comments: TAKE ONE TABLET BY MOUTH AT BEDTIME lisinopril 10 mg tablet 10 mg PO DAILY Patient Comments: TAKE 1 TABLET BY MOUTH ONCE DAILY Discharge Instructions Additional Instructions: Your CAT scan showed question of a possible bowel obstruction but your symptoms had resolved so if this was the case it seems like the obstruction resolved on its own. The CT also showed you likely have a prostate mass and I am placing on a follow-up list to try and see urology as soon as possible. You also have very small calcified aortic dissection. You can discuss with your primary care provider about possibly being referred to the vascular surgeon but I feel the prostate mass is what needs a more expeditious workup at this time. If you feel more ill, have recurrent severe abdominal pain or persistent vomiting return to the emergency department for reevaluation HPI General Mode of arrival: ambulatory. Date/Time Provider Initiated Documentation: 11/13/24 14:07. Limitations to Documentation: no limitations. Information obtained by: patient. History of Present Illness 69 year old M presents to the emergency department with the chief complaint of n/v, described as moderate, Patient started experiencing this hour(s) (5) and it has been intermittent. No relieving factors improve symptom(s), No exacerbating factors reported . Patient notes denies chest pain and shortness of breath. Patient did receive the following treatments prior to arrival, none Related Data Home Medications ?Medication ?Instructions ?Recorded ?Confirmed blood-glucose meter (FreeStyle 09/26/12 11/13/24 Lite Meter kit) blood sugar diagnostic (FreeStyle #100 strips 11/22/13 11/13/24 Lite Strips) lancets 28 gauge (FreeStyle #100 ea 11/22/13 11/13/24 Lancets) cholecalciferol (vitamin D3) 25 2,000 unit PO DAILY 03/21/19 11/13/24 mcg (1,000 unit) capsule rosuvastatin 40 mg tablet 40 mg PO DAILY 11/03/21 11/13/24 tamsulosin 0.4 mg capsule 0.4 mg PO DAILY 07/25/24 11/13/24 lisinopril 10 mg tablet 10 mg PO DAILY 11/13/24 11/13/24 ondansetron 4 mg disintegrating 4 mg PO Q8H PRN nausea and 11/13/24 tablet vomiting #30 tabs Previous Rx's ?Medication ?Instructions ?Recorded ondansetron 4 mg disintegrating 4 mg PO Q8H PRN nausea and 11/13/24 tablet vomiting #30 tabs Allergies Allergy/AdvReac Type Severity Reaction Status Date / Time metformin Allergy Unknown Verified 11/13/24 14:18 seafood Allergy Unknown Uncoded 11/13/24 14:18 General Stated Complaint: Abd Prob [place]: 3 Review of Systems All systems reviewed & are unremarkable except as noted in HPI and below Constitutional Constitutional: Denies fever(s) and Denies weakness Cardiovascular Cardiovascular: Denies chest pain and Denies dyspnea Respiratory Respiratory: Denies cough and Denies dyspnea Gastrointestinal Gastrointestinal: Reports abdominal pain, Reports nausea and Reports vomiting Neurologic Neurologic: Denies weakness Psychiatric Psychiatric: Denies depression Exam Const General: no acute distress Orientation: alert [facility] Head: normal to inspection Ears: external ears normal General nose exam: external nose normal Mouth: moist mucous membranes Eyes General: appearance normal, both eyes and all related structures Neck Neck: normal visual inspection Resp Effort & Inspection: normal respiratory effort and able to speak in complete sentences Cardio Rate: regular rate GI Palpation: soft, not firm, no guarding and tender Neuro General: patient alert and patient oriented x3 Psych Mental Status: mental status grossly normal Course Vital Signs Vital signs: Vital Signs Temperature 36.3 C L 11/13/24 14:11 Pulse 54 L 11/13/24 14:11 Respiratory Rate 16 11/13/24 14:11 Blood Pressure 152/77 H 11/13/24 14:11 Pulse Oximetry 98 11/13/24 14:11 Temperature 36.3 C L 11/13/24 14:11 Temperature Source Oral 11/13/24 14:11 Pulse 54 L 11/13/24 14:11 Respiratory Rate 16 11/13/24 14:11 Blood Pressure 152/77 H 11/13/24 14:11 Blood Pressure Position Sitting 11/13/24 14:11 Pulse Oximetry 98 11/13/24 14:11 Oxygen Delivery Method Room Air 11/13/24 14:11 Oxygen Flow Rate 0 11/13/24 14:11 Pain Level 8 11/13/24 14:11 Medical Decision Making 69-year-old male with a history of type 2 diabetes, hypertension who comes in with several hours of nausea vomiting and lower abdominal discomfort. He denies any chest pain, difficulty breathing, high fevers he is stable on arrival. He has a nondistended abdomen with tenderness in the left lower quadrant and right lower quadrant. He says he feels like he is improving. Given the nausea vomiting lower abdominal discomfort we will check a CBC, CMP and lipase and obtain a CT abdomen pelvis to evaluate for entities such as small bowel obstruction versus diverticulitis Labs without emergent findings. Patient CT shows concerns for possible bowel obstruction. Also has noted to have a likely prostate mass. Also noted chronic small calcified dissection. Patient denies ever having any recurrent abdominal pain so has likely had this for years without any symptoms. He says that he supposed to see urology in January because he has been having trouble peeing intermittently he is currently pain-free and has no nausea. He was able to drink liquids without any issue and no vomiting so I feel his obstruction if it was there is resolved already. Discussed results with him and given he feels better and has no symptoms and is tolerating p.o. I feel he can be discharged. I am going to place him on a follow-up list to try and see urology as soon as possible for workup of this likely pancreatic mass. I also recommend following up with his PCP and could discuss being referred to vascular but I feel the prostate mass is more of the issue that needs more expedited follow-up. Return precautions given Differential Diagnosis Differential Diagnosis: SBO, diverticulitis, food illness Lab Data Lab results reviewed: Yes I reviewed the patient's lab results. ECG Data Attestation: I personally reviewed and interpreted this ECG (s) as follows: Prior ECG tracings: not available for review Interpretation: sinus bradycardia, rate of 50 no stemi PFSH All Active Problems (Updated 11/13/24 @ 17:29 by Herbert Rebolledo MD) Prostate mass (Acute) Abdominal pain (Acute) Colorectal polyps (Acute) Medical History (Updated 11/13/24 @ 17:29 by Herbert Rebolledo MD) BPH (benign prostatic hyperplasia) Colonoscopy planned Lung nodule Arthritis Psoriasis Allergic rhinitis Sleep apnea does not use a device Hyperlipidemia Depression Former smoker (~2005) Heart murmur, systolic Non-insulin dependent type 2 diabetes mellitus Surgical History S/P triple vessel bypass (~07/2017) f/u WITH CARDIOLOGY AT [facility] [place] [place] LAST SEEN 10/2018 History of colonoscopy (~05/2019) H/O aortic valve replacement (~07/2017) Tonsillectomy Fracture, Closed Treatment ankle Cholecystectomy Social History Smoking/Tobacco Use Status: Former Tobacco Use Quit Date: 05/02/05 Smoking risk assessment performed?: Yes Alcohol Intake: current Alcohol Intake frequency: a few times a month Drug use: Occasionally Substance use type: marijuana Housing: house Do you feel safe at home: Yes Do you feel safe in your relationship?: Yes
[2024-11-13] MEDS: Normal Saline 1,000 ML 1000 ML IV (15:02)
[2024-11-13 15:09] LABS: Abs Immature Grans 0.03 10^3/uL (0.0-0.06); HCT 45.3 % (40.0-50.0); HGB 15.6 g/dL (13.5-17.5); Immature Grans % 0.3 %; MCH 29.9 pg (27.0-33.0); MCHC 34.4 % (32.0-36.0); MCV 87 fL (80-95); MPV 11.4 fL (8.0-11.0); Platelet Count 177 10^3/uL (130-400); RBC 5.21 10^6/uL (4.36-5.78); RDW 12.4 % (11.8-14.1); RDW-SD 39.5 fL; WBC 11.87 10^3/uL (4.4-10.8)
[2024-11-13] MEDS: Ondansetron 4 MG/2 ML VIAL IVP (15:27)
[2024-11-13 15:29] LABS: BE (Venous) -1 mmol/L (-2-3); HCO3 (Venous) 25 mmol/L (23-28); O2 Sat (Venous) 55 %; TCO2 (Venous) 22 mmol/L (24-29); pCO2 (Venous) 45 mmHg (41-51); pO2 (Venous) 29 mmHg
[2024-11-13 15:41] LABS: ALT 24 U/L (16-63); AST 19 U/L (15-37); Albumin 4.2 g/dL (3.4-5.0); Alkaline Phosphatase 49 U/L (46-116); Anion Gap 9.7 mmol/L (3-11); BUN 24 mg/dL (7-18); Bilirubin, Total 1.1 mg/dL (0.2-1.0); CO2 26.3 mmol/L (21.0-32.0); Calcium 9.5 mg/dL (8.5-10.1); Chloride 105 mmol/L (98-107); Estimated GFR 65.46 (mL/min/1.73m2); Glucose 173 mg/dL (74-106); Lipase 32 U/L (<78); Magnesium 2.0 mg/dL (1.8-2.4); Potassium 4.4 mmol/L (3.5-5.1); Sodium 141 mmol/L (136-145); Total Protein 7.8 g/dL (6.4-8.2)
[2024-11-13] MEDS: Normal Saline - Diluent 50 ML VIAL IJ (15:55)
[2024-11-13] MEDS: Omnipaque 350 MG/ML 100 ML BTL IJ (15:56)
[2024-11-13 16:37] LABS: COVID-19 PCR Negative (Negative); RSV PCR Negative (Negative)
[2024-11-13 17:45] VITALS: BP 103/52; PULSE 52; RESP 18; O2SAT 100
== END 2024-11-13 18:22 | disposition home or self-care (01) ==
PROVIDERS: Emergency Provider Emergency Medicine; PCP Family Medicine
DX: R10.31 Right lower quadrant pain (principal); R10.32 Left lower quadrant pain; N42.89 Other specified disorders of prostate; R00.1 Bradycardia, unspecified; E78.5 Hyperlipidemia, unspecified; E11.9 Type 2 diabetes mellitus without complications; Z95.1 Presence of aortocoronary bypass graft; Z95.2 Presence of prosthetic heart valve; Z87.891 Personal history of nicotine dependence
CPT/HCPCS: 36415; 80053; 82805; 83690; 87637; 93005; 96374; 99285; 74177; 83735; 85025; 93010; 99284; J2405; J3490

== ENCOUNTER → 2024-11-15 07:55 | Outpatient (BNVA) | payer MEDICARE, SELFPAY | PROVIDERS: PCP Family Medicine; Referring Provider Family Medicine; Visit Provider Nurse Practitioner Gerontology | DX: N40.0 Benign prostatic hyperplasia without lower urinary tract symptoms (principal); N42.89 Other specified disorders of prostate; R39.9 Unspecified symptoms and signs involving the genitourinary system; E11.9 Type 2 diabetes mellitus without complications | CPT/HCPCS: 99215; 81002; 51798 ==

== ENCOUNTER 2024-11-15 09:00 | Outpatient (CLI) | payer MEDICARE, SELFPAY ==
[2024-11-15 19:11] LABS: PSA, Diagnostic 3.0 ng/mL (<=4.5)
== END 2024-11-15 09:01 | disposition home or self-care (01) ==
LOC: LBO 09:00
PROVIDERS: PCP Family Medicine; Visit Provider Nurse Practitioner Gerontology
DX: N40.0 Benign prostatic hyperplasia without lower urinary tract symptoms (principal); N42.89 Other specified disorders of prostate
CPT/HCPCS: 36415; 84153

== ENCOUNTER → 2024-12-25 07:59 | Outpatient (BNVA) | payer MEDICARE, SELFPAY | PROVIDERS: PCP Family Medicine; Referring Provider Family Medicine; Visit Provider Nurse Practitioner Gerontology | DX: N40.1 Benign prostatic hyperplasia with lower urinary tract symptoms (principal); N42.89 Other specified disorders of prostate; R39.16 Straining to void; R39.12 Poor urinary stream; R39.15 Urgency of urination | CPT/HCPCS: 99214 ==

== ENCOUNTER → 2025-04-08 08:05 | Outpatient (BNVA) | payer MEDICARE, SELFPAY | PROVIDERS: PCP Family Medicine; Referring Provider Family Medicine; Visit Provider Nurse Practitioner Gerontology | DX: N40.0 Benign prostatic hyperplasia without lower urinary tract symptoms (principal); N42.89 Other specified disorders of prostate; R39.9 Unspecified symptoms and signs involving the genitourinary system | CPT/HCPCS: 99214; 51798 ==